=== PATIENT | male | born 1985 | race African-American/Black ===

== ENCOUNTER 2023-11-28 04:33 | Observation (INO) | payer OTHER, SELFPAY ==
[2023-11-28] VITALS (29 sets, daily range): BP systolic 113–130; BP diastolic 72–100; PULSE 53–87; RESP 12–20; TEMP 36.2–36.6; O2SAT 94–100; BMI 25.4
--- NOTE | 2023-11-28 | ECHO_ITS ---
Patient Info Name: Tanner Dickson Age: 38 years : 1985 Gender: Male Ht: 70 in Wt: 176 lbs BSA: 1.99 m2 HR: 79 bpm BP: 120 / 76 mmHg Heart Rhythm: Sinus Rhythm Technical Quality: Good Exam Date: 11/28/2023 2:28 PM Exam Location: Echo Lab Patient Status: Outpatient Admit Date: 11/28/2023 Staff Ordering Physician: Nathanael Sheridan MD Poultry Trimmer: Jared Webber RDCS Attending Provider: Sveta Dobson DO Exam Type: CA echo doppler color flow Study Info Indications - murmur Complete two-dimensional, color flow and Doppler transthoracic echocardiogram is performed. Summary 1. Complete two-dimensional, color flow and Doppler transthoracic echocardiogram is performed. 2. Unremarkable 2D/Doppler echocardiogram. 3. Trivial amount of tricuspid regurgitation is within physiologic normal limits. Left Ventricle Left ventricular chamber dimension is normal. Left ventricular systolic function is normal, estimated at 65-70%. The left ventricular diastolic function is normal. Right Ventricle Right ventricular chamber dimension is normal. Left Atria Left atrial chamber dimension is normal. Right Atria Right atrial chamber dimension is normal. Aortic Valve The aortic valve is normal. Pulmonic Valve The pulmonic valve is normal. Mitral Valve The mitral valve has normal leaflets. Tricuspid Valve The tricuspid valve leaflets are normal. There is trace tricuspid valve regurgitation. Pericardium/Pleural The pericardium appears normal. Aorta The aortic root size at the sinus of Valsalva is normal. Left Ventricular Outflow Tract Name Value Normal LVOT 2D LVOT Diameter 2.1 cm LVOT Doppler LVOT Peak Gradient 7 mmHg LVOT Mean Gradient 5 mmHg LVOT VTI 28 cm LVOT VTI/AV VTI Ratio 1.0 LVOT Stroke Volume 92 ml LVOT CO 4.8 l/min LVOT CI 2.4 l/min/m2 Pulmonic Valve Name Value Normal RVOT Doppler RVOT Peak Gradient 2 mmHg PV Doppler PV Peak Gradient 2 mmHg Mitral Valve Name Value Normal MV Doppler MV Decel [place] 275 cm/s2 MV PHT 89 ms MV Area (PHT) 2.5 cm2 4.0-5.0 MV Diastolic Function MV E Peak Velocity 84 cm/s MV A Peak Velocity 74 cm/s
--- NOTE | ~2023-11-28 | XR_ITS ---
Portable chest x-ray Comparison: None Clinical History: Seizure Findings: Lungs are clear, without focal consolidation or pleural effusion. Cardiomediastinal silho uette is unremarkable. Bones and soft tissues are unremarkable. Impression: Normal chest. Reviewed, dictated and finalized at location M. Impression: Normal chest.
--- NOTE | ~2023-11-28 | CT_ITS ---
EXAMINATION: CT cervical spine wo con DATE: 11/28/2023 12:22 INDICATION: Head injury. Fall. TECHNIQUE: Computed tomography (CT) of the cervical spine was performed without intravenous contrast. Automated exposure control and iterative reconstruction technique were employed. The dose-length pro duct was 584.94 mGy-cm. COMPARISON: None FINDINGS: There is 5 degrees dextrocurvature of cervical spine thoracic spine. Vertebral body heights are normal. There is mildly decreased disc height at C5-C6. There is multilevel mild facet joint ost eoarthritis. No neural foraminal stenosis or central canal stenosis. IMPRESSION: 1. No fracture. 2. Mild cervical spondylosis. Reviewed, dictated and finalized at location A.
--- NOTE | ~2023-11-28 | CT_ITS ---
Non-contrast Head CT History: Seizure Technique: Axial non-contrast imaging of the brain was performed. Dose reduction technique was used on this scan by utilizing automated exposure control and iterative reconstruction technique. The dose -length product (DLP) was 529.67 mGy-cm. Findings: There is no evidence of intracranial hemorrhage, mass lesion, or acute infarct. Brain par enchyma appears normal. The ventricles and subarachnoid spaces are normal in size. The calvarium ap pears normal. The visualized paranasal sinuses and mastoid air cells are clear. Impression: No significant abnormality seen. Reviewed, dictated and finalized at location . Impression: No significant abnormality seen.
--- NOTE | ~2023-11-28 | MR_ITS ---
EXAMINATION: MR brain/brain stem wo/w con DATE: 11/29/2023 12:08 INDICATION: Seizure. TECHNIQUE: Magnetic resonance imaging (MRI) of the brain and brainstem was performed without and with 16 mL MultiHance intravenous contrast. COMPARISON: Head CT 11/28/2023 FINDINGS: There is no intracranial hemorrhage, acute infarction, or abnormal intracranial mass lesion . The hippocampi are normal and symmetric. The ventricles are normal in size. There is mild mucosal t hickening in the paranasal sinuses. The orbits are normal. The mastoid air cells are normal. IMPRESSION: 1. Normal brain. Reviewed, dictated and finalized at location A. IMPRESSION: 1. Normal brain.
--- NOTE | 2023-11-28 04:28 | ECG_ITS ---
SEE SCANNED COPY FOR CONFIRMED REPORT MTDD
[2023-11-28] MEDS: SODIUM CHLORIDE 0.9% IV 2,000 ML 999 ML IV CONT (04:43)
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
--- NOTE | 2023-11-28 04:49 | PC.NURSE ---
Patient's mother and significant other at bedside now. Significant other states that she woke up and found patient snoring on the kitchen floor. Patient was difficult to arouse per significant other. Per mother and significant other patient has a medical history of seizures and a TBI. Patient currently A&Ox3 (was A&Ox1 upon arrival).
[2023-11-28 04:51] LABS: Basophils Percent Auto 0.5 % (0.2-1.2); Eosinophils Absolute Auto 0.2 K/mm3 (0-0.3); Eosinophils Percent Auto 2.3 % (0-4.4); Hematocrit 42.6 % (42.0-52.0); Hemoglobin 14.1 g/dL (14.0-18.0); Immature Granulocyte Absolute 0.17 K/mm3 (0.00-0.031); Immature Granulocyte Percent A 2.3 % (0-0.5); Lymphocytes Absolute Auto 2.25 K/mm3 (0.9-3.2); Lymphocytes Percent Auto 30.4 % (18.3-44.2); Mean Corpuscular HGB Conc 33.1 g/dl (32-36); Mean Corpuscular Volume 87.5 fl (80-100); Mean Platelet Volume 9.2 fl (7.4-10.4); Monocytes Absolute Auto 0.6 K/mm3 (0.1-0.6); Monocytes Percent Auto 7.4 % (2.6-8.5); Neutrophils Absolute Auto 4.2 K/mm3 (1.3-6.7); Neutrophils Percent Auto 57.1 % (45.5-73.1); Platelet Count Result 271 k/mm3 (150-375); Red Blood Count 4.87 M/mm3 (4.6-6.20); Red Cell Distribution Width 11.9 % (11.5-14.5); White Blood Count 7.4 K/mm3 (4.5-10.0)
[2023-11-28] MEDS: levETIRAcetam 1500MG/NACL100ML 1,500 MG/100 ML BAG 400 MG IVPB (04:55)
[2023-11-28 05:04] LABS: Acetaminophen < 10 ug/mL (10-30); Alanine Aminotransferase 23 U/L (6-50); Albumin Level 4.3 g/dL (3.5-5.1); Alkaline Phosphatase 69 U/L (38-126); Anion Gap 8 mmol/L (4-12); Aspartate Amino Transferase 33 U/L (17-59); Bilirubin,Total 0.5 mg/dL (0.2-1.3); Blood Urea Nitrogen 15 mg/dL (9-20); Calcium 9.1 mg/dL (8.4-10.2); Carbon Dioxide 24 mmol/L (22-30); Chloride 105 mmol/L (98-107); Estimated CRCL calculation 71 ml/min; Estimated Glomerular Filt Rate > 60; Ethanol < 10 mg/dL (<10); Glucose 194 mg/dL (65-110); Lipase 224 U/L (23-300); Magnesium 1.9 mg/dL (1.6-2.3); Phosphorus 2.8 mg/dL (2.5-4.5); Potassium 4.3 mmol/L (3.4-5.0); Sodium 137 mmol/L (137-145)
[2023-11-28 05:05] LABS: Glucose Point of Care 190 mg/dl (65-105)
[2023-11-28 05:09] LABS: INR 0.9; Prothrombin Time 12.7 Seconds (11.1-14.7)
[2023-11-28 05:10] LABS: Partial Thromboplastin Time 22.7 Seconds (22.3-36.8)
[2023-11-28 05:15] LABS: Lactic Acid Reflex 4.7 mmol/L (0.7-2.0)
[2023-11-28 05:43] LABS: Salicylate < 1.0 mg/dL (2-20)
[2023-11-28 06:03] LABS: Appearance Urine Clear (Clear); Bacteria Urine None Seen /hpf; Bilirubin Urine Negative (Negative); Blood Urine Negative (Negative); Color Urine Yellow (Yellow); Glucose Urine UA Trace mg/dL (Negative); Ketones Urine Trace mg/dL (Negative); Leukocyte Esterase Ur Negative LEU/UL (Negative); Nitrate Urine Negative (Negative); Non Pathogenic Casts 0-2; Protein Urine Trace mg/dL (Negative); RBC Urine 0-2 /hpf (0-2); Specific Grav Ur 1.017 (1.001-1.035); Squamous Epithelial Cell Urine None Seen /hpf (Few); Urobilinogen Urine 0.2 mg/dL (<2.0); WBC Urine 0-5 /hpf (0-3); pH Urine 5.5 (5.0-9.0)
[2023-11-28 06:07] LABS: Add Urine Microscopic? YES
[2023-11-28 06:15] LABS: Amphetamine Screen Urine Negative (Negative); Barbiturate Screen Urine Negative (Negative); Benzodiazepines Screen Urine Negative (Negative); Cannabinoid Screen Urine Negative (Negative); Cocaine Screen Urine Negative (Negative); Methadone Screen Urine Negative (Negative); Opiate Screen Urine Negative (Negative); Phencyclidine Screen Urine Negative (Negative)
--- NOTE | 2023-11-28 06:29 | PC.NURSE ---
Patient presents A&Ox4 with a GCS of 15.
[2023-11-28] MEDS: LACTATED RINGERS 1,000 ML 125 ML IV CONT ×2 (06:46→20:58)
[2023-11-28 07:48] LABS: Reflex Lactic Acid Yes or No Add Lactic
[2023-11-28 08:33] LABS: Lactic Acid 1.1 mmol/L (0.7-2.0)
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
--- NOTE | 2023-11-28 12:27 | ADMGEN ---
This patient, Tanner Dickson Jr., was admitted to [facility] Surg Room 330-01. Patient/family oriented to hospital policies and general routines including ID bracelet, bed and alarms, visiting hours, pain management, procedures, bathroom and other care routines, personal items, smoking policy, room service/diet, and visiting hours. Information on how to activate the Rapid Response Team has been discussed. Patient/Family are encouraged to report perceived risks to care and to ask questions if they do not understand what they are told or what they should do.
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
[2023-11-28 19:00] LABS: Creatine Kinase 216 U/L (55-170)
[2023-11-28] MEDS: levETIRAcetam 500MG/NACL 100ML 500 MG/100 ML BAG 400 MG IVPB (20:58)
[2023-11-29] VITALS (7 sets, daily range): BP systolic 108–117; BP diastolic 62–71; PULSE 60–70; RESP 16; TEMP 36.3–36.8; O2SAT 98
[2023-11-29 05:50] LABS: Anion Gap 3 mmol/L (4-12); Blood Urea Nitrogen 10 mg/dL (9-20); Calcium 8.9 mg/dL (8.4-10.2); Carbon Dioxide 28 mmol/L (22-30); Chloride 110 mmol/L (98-107); Estimated CRCL calculation 76 ml/min; Estimated Glomerular Filt Rate > 60; Glucose 93 mg/dL (65-110); Potassium 3.7 mmol/L (3.4-5.0); Sodium 141 mmol/L (137-145)
[2023-11-29 05:52] LABS: Hemoglobin A1C 5.3 % (<5.7)
[2023-11-29 07:04] LABS: Folic Acid 7.9 ng/mL (2.76->20)
[2023-11-29] MEDS: ENOXAPARIN 40 MG/0.4 ML SYRINGE SUB-Q (09:04)
[2023-11-29] MEDS: levETIRAcetam 500 MG TABLET PO (09:04)
--- NOTE | 2023-11-29 11:23 | PC.NURSE ---
pt off floor for imaging
[2023-11-29] MEDS: CHLORHEXIDINE GLUCONATE 0.12% ORAL RINSE 473 ML BTL (*BKC) 15 ML SWISH/SPIT (16:35)
--- NOTE | 2023-11-29 17:09 | PM.DS ---
DS: Admitting Diagnosis Discharge Date 11/29/23 Admitting Diagnosis Altered mental status DS: Discharge Diagnosis Discharge Diagnosis (1) Seizure disorder: Code(s): G40.909 - Epilepsy, unspecified, not intractable, without status epilepticus Status: Acute (2) Myasthenia gravis: Code(s): G70.00 - Myasthenia gravis without (acute) exacerbation Status: Acute (3) TBI (traumatic brain injury): Code(s): S06.9XAA - Unspecified intracranial injury with loss of consciousness status unknown, initial encounter Status: Acute (4) Hyperglycemia: Code(s): R73.9 - Hyperglycemia, unspecified Status: Acute (5) Lactic acidosis: Code(s): E87.20 - Acidosis, unspecified Status: Acute DS: Summary Hospital Course Reason for hospitalization: 38yo male with hx of TBI, seizure disorder and myastenia gravis here for altered mental status.?Please see H&P for details Hospital Course: In the ED, he was hemodynamically stable. CBC, PT/PTT, Lipase and CMP were normal except for a glucose of 194. He does not have diabetes. His lactic was 4.7 but normal on repeat. EKG showing normal sinus rhythm with early repolarization. CXR was clear and head CT showing no acute findings.? UDS was negative.? UA was clear.? He was given IV fluids and Keppra 1500mg IV once. He became more awake and alert. Neurology was contacted by ED. Brain MRI was normal. Echo was read as normal. EEG performed but result pending. Neurology recommended continuing the Keppra at 750mg Q12hr and also scheduling the Mestinon for his MG. Hyperglycemia and lactic acidosis resolved. He overall did well and was able to be discharged on 11/29/23. Status at Discharge Cognitive/behavioral status at discharge: stable Time Spent with Patient Time attestation: Total time spent providing and/or coordinating discharge services: 32 minutes Time spent: Greater than 30 minutes Exam Narrative: AF 98.2 117/71 62 16 98% ra Gen - NARD Chest - CTA bilaterally CV - RRR S1/S2. Tele showing mild bradycardia (HR around 50 mostly) Abd - soft, NT/ND Ext - no pedal edema Neuro - patient is alert and appropriate. Psych - normal mood and affect. Skin - warm and dry. DS: Data Data Completed and Pending Labs on day of discharge: Labs from last 24 hours 11/29/23 11/28/23 05:32 08:13 Sodium 141 Potassium 3.7 Chloride 110 H Carbon Dioxide 28 Anion Gap 3 L BUN 10 D Creatinine 1.20 Estim Creat Clear Calc 76 Estimated GFR > 60 Glucose 93 Hemoglobin A1c 5.3 Calcium 8.9 Total Creatine Kinase 216 H Vitamin B12 771.0 Vitamin D 25-Hydroxy 26.0 Folate 7.9 TSH 1.210 TSH (Reflex) 1.730 Discharge Plan Discharge Attending physician on discharge: Nathanael Sheridan Consulting providers: Yvon Martinez Discharging Clinician: Nathanael Sheridan Anticipated Discharge Date/Time: 11/29/23 17:17 Patient Disposition: Home, Self-Care Activity: no driving Diet: regular Discharge Instructions: Contact your doctor or call 911 and come to the Emergency Room if you have seizure-like activity or other worrisome symptoms. Follow-up with your primary care provider in 1-2 weeks. Please call for appointment. Follow-up with Neurology in 2-3 weeks. Please call for an appointment. Thank you for using [facility] for your health care needs. Patient Instructions: Antibiotic Form Stand Alone Forms: General Discharge Information Follow-up/Referrals: Keon Quigley MD [Physician] - Call for Appointment UNKNOWN,DOCTOR [Primary Care Provider] - Call for Appointment Discharge Medications: New levetiracetam 750 mg tablet 750 mg PO Q12H Qty: 60 2RF chlorhexidine gluconate 0.12 % Mouthwash 15 ml SWISHSPIT BID Qty: 120 0RF Changed pyridostigmine bromide [Mestinon Timespan] 180 mg Tablet Extended Release 180 mg PO DAILY Qty: 30 1RF Date o
--- NOTE | 2023-12-01 13:46 | WPDNEUROLOGY ---
Neurology EEG Report General Information Date of Study: 11/29/23 TEST eeg DIAGNOSIS Seizures CONDITION OF RECORDING awake ,drowsy and sleep. EEG NUMBER [id number] CLINICAL HISTORY patient reports he does not remember what happened but was told he had a seizure. EEG DESCRIPTION Basic resting occipital frequency consists of low to medium voltage 8 to 10 hertz per 2nd alpha admixed with low-voltage 15 to 18 hertz per 2nd beta and also with good stevie posterior gradient. Low-voltage beta activity seen during drowsiness admixed with waxing and waning posterior alpha rhythm. Bilateral symmetrical sleep spindles are noted during sleep with intermittent alpha beta and theta activity. Hyperventilation not done. Photic stimulation not done. Non paroxysmal. Nonfocal. Nonlateralizing. IMPRESSION No significant abnormalities noted. Normal EEG at this stage does not rule out the diagnosis of seizure disorder, clinical correlation recommended.
== END 2023-11-29 18:40 | disposition home or self-care (01) ==
LOC: ANHED 06:19 → ANH3MEDSUR 06:48
PROVIDERS: Psychiatry & Neurology Neurology; Admitting Provider Internal Medicine; Emergency Provider Emergency Medicine; Visit Provider Internal Medicine
DX: G40.909 Epilepsy, unspecified, not intractable, without status epilepticus (principal); E87.20 Acidosis, unspecified; R73.9 Hyperglycemia, unspecified; R01.1 Cardiac murmur, unspecified; G70.00 Myasthenia gravis without (acute) exacerbation; Z87.820 Personal history of traumatic brain injury
CPT/HCPCS: 36415; 70450; 70553; 71045; 72125; 80048; 80053; 80307; 81001; 82306; 82550; 82607; 82746; 82948; 83036; 83605; 83690; 83735; 84100; 84443; 85025; 85610; 85730; 93005; 93306; 95816; 96361; 96372; 96374; 96375; 96376; 99285; A4248; A9270; A9577; G0378; J1650; J1953; J7030; J7120